=== PATIENT | male | born 1985 | race Caucasian/White ===

== ENCOUNTER 2023-07-23 18:00 | Emergency (ER) | payer SELFPAY ==
[~2023-07-23] VITALS: Ht 182.9 cm; Wt 100.2 kg
[2023-07-23] MEDS ORDERED: KETOROLAC TROMETHAMINE 15 MG/ML VIAL ONE (18:51)
[2023-07-23] MEDS ORDERED: KETOROLAC TROMETHAMINE INJ 30 MG/ML VIAL IV ONE (19:00)
[2023-07-23] MEDS ORDERED: LIDO1ADH TD (19:51)
[2023-07-23 20:03] VITALS: BP 130/70; TEMP 98.2; O2SAT 99
== END 2023-07-23 20:03 | disposition home or self-care (01) ==
LOC: ER 18:03
DX: S39.012A Strain of muscle, fascia and tendon of lower back, initial encounter (principal); X58.XXXA Exposure to other specified factors, initial encounter; Y93.B9 Activity, other involving muscle strengthening exercises; Y92.89 Other specified places as the place of occurrence of the external cause; Y99.8 Other external cause status
CPT/HCPCS: 99283; 96374; J1885

== ENCOUNTER 2023-07-28 14:10 | Emergency (ER) | payer MEDICAID ==
[~2023-07-28] VITALS: Ht 180.3 cm; Wt 110.2 kg
[~2023-07-28 14:10] MED LIST: LIDO1ADH TD
[2023-07-28 14:32] VITALS: BP 154/68; TEMP 98.2
[2023-07-28] MEDS ORDERED: CYCL5TAB PO (14:46)
[2023-07-28] MEDS ORDERED: LIDO1ADH71 TP (14:46)
[2023-07-28 15:08] VITALS: O2SAT 98
== END 2023-07-28 15:09 | disposition home or self-care (01) ==
LOC: ER 14:18
DX: S39.012A Strain of muscle, fascia and tendon of lower back, initial encounter (principal); X58.XXXA Exposure to other specified factors, initial encounter; Y93.89 Activity, other specified; Y92.89 Other specified places as the place of occurrence of the external cause; Y99.8 Other external cause status

== ENCOUNTER 2024-11-27 05:07 | Emergency (ER) | payer MEDICAID, OTHER ==
[~2024-11-27] VITALS: Ht 172.7 cm; Wt 82.6 kg
[~2024-11-27 05:07] MED LIST changes: +CYCL5TAB PO; +LIDO1ADH71 TP
[2024-11-27 05:57] LABS: BASOPHILS # (AUTO) 0.1 K/uL (0.0-0.2); BASOPHILS % (AUTO) 0.9 % (0.0-2.0); EOSINOPHILS # (AUTO) 0.3 K/uL (0.0-0.7); EOSINOPHILS % (AUTO) 4.3 % (0.0-6.0); HEMATOCRIT 45 % (39-51); HEMOGLOBIN 15.3 g/dL (13.5-17.5); LYMPHOCYTES # (AUTO) 2.1 K/uL (0.8-4.8); LYMPHOCYTES % (AUTO) 26.2 % (20.0-44.0); MEAN CORPUSCULAR HEMOGLOBIN 29 PG (26.0-33.0); MEAN CORPUSCULAR HGB CONC 34 g/dl (31.0-36.0); MEAN CORPUSCULAR VOLUME 84 fL (80-96); MONOCYTES # (AUTO) 0.8 K/uL (0.1-1.30); MONOCYTES % (AUTO) 10.1 % (2.0-12.0); NEUTROPHILS # (AUTO) 4.6 K/uL (1.8-8.9); NEUTROPHILS % (AUTO) 58.5 % (43.0-81.0); PLATELET COUNT (AUTO) 278 K/uL (150-450); RED BLOOD CELL COUNT(AUTO) 5.28 MIL/uL (4.5-6.0); RED CELL DISTRIBUTION WIDTH 13.4 % (11.5-15.0)
[2024-11-27 06:04] LABS: CALCIUM, SERUM 8.7 mg/dL (8.5-10.1); POTASSIUM 3.5 mmol/L (3.5-5.1)
[2024-11-27] MEDS: ALPRAZOLAM 0.25 MG TABLET PO ONE (06:30)
[2024-11-27] MEDS ORDERED: ALPRAZOLAM 0.25 MG TABLET ONE (06:31)
[2024-11-27] MEDS ORDERED: HYDR50TA61 PO (07:16)
[2024-11-27 09:42] VITALS: BP 105/65; TEMP 98.1; O2SAT 98
== END 2024-11-27 10:09 | disposition home or self-care (01) ==
LOC: ER 05:10
DX: R00.2 Palpitations (principal); F41.9 Anxiety disorder, unspecified; F43.9 Reaction to severe stress, unspecified; Z56.9 Unspecified problems related to employment; Z59.00 Homelessness unspecified; Z87.891 Personal history of nicotine dependence
CPT/HCPCS: 36415; 71045-TC; 80048-TC; 84484-TC; 85025-TC